=== PATIENT | female | born 1995 | race Caucasian/White ===

== ENCOUNTER 2016-10-05 13:34 | Emergency (ER) | payer OTHER ==
[~2016-10-05] VITALS: Wt 71.0 kg
[~2016-10-05 13:34] MED LIST: AUG875 PO; CEPH-443 PO; IBUP-1542 PO; PRED20TA PO; TRAM50TA2 PO
[2016-10-05] MEDS ORDERED: AZIT250T94 PO (15:54)
[2016-10-05] MEDS ORDERED: IBUP-1542 PO (15:54)
[2016-10-05] MEDS ORDERED: IBUPROFEN 800 MG TAB PO ONE (16:00)
[2016-10-05] MEDS ORDERED: AZITHROMYCIN 250 MG TAB PO ONE (16:00)
--- NOTE | 2016-10-05 16:03 | ERD ---
ER Documentation Chief Complaint Date/Time DATE: 10/05/16 TIME: 16:01 Chief Complaint FEVER X 3 DAYS HPI Patient is a 21-year-old female with no medical problems who presents with fever. She also has cough with productive sputum. She also complains of headache and back pain. However her back pain has been chronic and she is trying to get an MRI as an outpatient. She has had these symptoms for the last 3 days. She was taking Tylenol with no help. She has no urinary symptoms. She does not know the name of her primary doctor. ROS All systems reviewed and are negative except as per history of present illness. Medications Home Meds Active Scripts Ibuprofen* (Motrin*) 600 Mg Tab, 600 MG PO Q6H Y for PAIN AND OR ELEVATED TEMP, #30 TAB Prov:ÁLVARO SHUKLA MD 10/05/16 Azithromycin* (Zithromax*) 250 Mg Tablet, 250 MG PO DAILY for 4 Days, TAB Prov:ÁLVARO SHUKLA MD 10/05/16 Ibuprofen* (Motrin*) 600 Mg Tab, 600 MG PO Q6, #30 TAB Prov:JAVI NEWMAN PA-C 10/03/15 Amoxicillin-Clavulanate K* (Augmentin*) 875 Mg Tab, 875 MG PO BID for 10 Days, TAB Prov:JAVI NEWMAN PA-C 10/03/15 Prednisone* (Prednisone*) 20 Mg Tab, 60 MG PO DAILY for 5 Days, TAB Prov:JAVI NEWMAN PA-C 10/03/15 Cephalexin* (Keflex*) 500 Mg Capsule, 500 MG PO QID for 5 Days, CAP Prov:JAKE ARMAS MD 06/17/15 Tramadol HCl (Tramadol HCl) 50 Mg Tab, 50 MG PO BID, #20 TAB Prov:JAKE ARMAS MD 06/17/15 Ibuprofen* (Motrin*) 600 Mg Tab, 600 MG PO Q6, #30 TAB Prov:JAKE ARMAS MD 06/17/15 Allergies Allergies: Coded Allergies: No Known Drug Allergy (Verified Allergy, Mild, 10/05/16) PMhx/Soc Medical and Surgical Hx: pt denies Medical Hx History of Surgery: No Anesthesia Reaction: No Hx Neurological Disorder: No Hx Respiratory Disorders: No Hx Cardiac Disorders: No Hx Psychiatric Problems: No Hx Miscellaneous Medical Probl: No Hx Alcohol Use: No Hx Substance Use: No Hx Tobacco Use: No Smoking Status: Never smoker FmHx Family History: diabetes Physical Exam Vitals Vital Signs Date Time Temp Pulse Resp B/P Pulse Ox O2 Delivery O2 Flow Rate FiO2 10/05/16 13:36 103.4 111 18 126/71 99 Physical Exam Const: Mild distress secondary to pain Head: Atraumatic Eyes: Normal Conjunctiva ENT: Normal External Ears, Nose and Mouth. Neck: Full range of motion..~ No meningismus. Resp: Clear to auscultation bilaterally, no tachypnea, retractions, or respiratory distress Cardio: Regular rate and rhythm, no murmurs Abd: Soft, non tender, non distended. Normal bowel sounds Skin: No petechiae or rashes Back: No midline or flank tenderness Ext: No cyanosis, or edema Neur: Awake and alert Psych: Normal Mood and Affect Results 24 hrs Current Medications Medications (Trade) Dose Ordered Sig/[place] Route PRN Reason Start Time Stop Time Status Last Admin Dose Admin Ibuprofen (Motrin) 800 mg ONCE ONCE PO 10/05/16 16:00 10/05/16 16:01 10/05/16 15:57 Azithromycin (Zithromax) 500 mg ONCE ONCE PO 10/05/16 16:00 10/05/16 16:01 10/05/16 15:57 Procedures/MDM Patient is a 21-year-old female who presents with fever and cough. She said that she has productive sputum and I believe this is most likely bronchitis. Her lung exam is normal without retractions or accessory muscle use. She has back pain but this has been chronic. I doubt epidural abscess, epidural hematoma, or cauda equina syndrome. She is ambulatory in the ER. She has no incontinence. She is otherwise well-appearing and well-hydrated. I doubt sepsis or other serious paternal infection at this time. She was given Zithromax in the emergency department and will be given 4 more days for a bronchitis. She will be given ibuprofen for pain and fever. She can use Tylenol alternating with Motrin as needed for fever. She can return sooner for any worsening symptoms. She should follow-up with her primary doctor within 24 hours for reevaluation. Departure Diagnosis: Primary Impression: Bronchitis Additional Impression: Fever Fever type: unspecified Qualified Code: R50.9 - Fever, unspecified fever cause Condition: Fair Patient Instructions: Bronchitis, Antiobiotic Treatment (Adult), Fever Control (Adult) Additional Instructions: Call your primary care doctor TOMORROW for an appointment during the next 1-2 days.See the doctor sooner or return here if your condition worsens before your appointment time. ÁLVARO SHUKLA MD Oct 05, 2016 16:03
[2016-10-05 16:16] VITALS: BP 130/72; RESP 16; TEMP 100
== END 2016-10-05 16:26 | disposition home or self-care (01) ==
LOC: FTE 13:34
DX: J20.9 Acute bronchitis, unspecified (principal)
CPT/HCPCS: Z7502; Z7610; 99283